=== PATIENT | female | born 1980 ===

== ENCOUNTER 2018-07-04 16:50 | Emergency (ER) | payer OTHER ==
[2018-07-04 17:09] VITALS: BP 124/84; PULSE 96; RESP 18; TEMP 97.7; O2SAT 99
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
[2018-07-04] MEDS ORDERED: Apap-Butalbital-Caffeine 325-50-40mg Tab PO STA (17:18)
[2018-07-04 17:19] VITALS: BMI 33.9
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
== END 2018-07-04 18:15 | disposition home or self-care (01) ==
LOC: ED 16:50
DX: F07.81 Postconcussional syndrome (principal); V49.49XA Driver injured in collision with other motor vehicles in traffic accident, initial encounter; Y92.410 Unspecified street and highway as the place of occurrence of the external cause